=== PATIENT | male | born 1960 | race Caucasian/White ===

== ENCOUNTER 2019-08-23 08:58 | Day surgery (SDC) | payer OTHER ==
[~2019-08-23] VITALS: Ht 190.5 cm; Wt 123.0 kg
[2019-08-23] MEDS ORDERED: MIDAZOLAM 1 MG/ML, 2ML ONE (09:03)
[2019-08-23] MEDS ORDERED: FENTANYL PF 100 MCG/2ML ONE (09:03)
[2019-08-23] MEDS ORDERED: BUPIVACAINE/PF 0.25% ONE (09:05)
[2019-08-23] MEDS ORDERED: LIDOCAINE-MPF 2% ,5ML ONE ×2 (09:05→10:40)
[2019-08-23] MEDS ORDERED: LIDOCAINE-MPF 1%, 2ML INFIL STA (09:31)
[2019-08-23] MEDS ORDERED: CHLORHEXIDINE 15 ML UDC MM STA (09:31)
[2019-08-23] MEDS ORDERED: LACTATED RINGERS 1,000 ML IV STA (09:31)
[2019-08-23 09:32] VITALS: BP 124/84
[2019-08-23] MEDS ORDERED: IBUP-1223 PO (09:37)
[2019-08-23] MEDS ORDERED: CYCL5TAB PO (09:37)
[2019-08-23] MEDS ORDERED: HYDR-3246 PO (09:37)
[2019-08-23] MEDS ORDERED: LIDOCAINE-MPF 1%, 2ML ONE (09:38)
[2019-08-23] MEDS ORDERED: CHLORHEXIDINE 15 ML UDC ONE (09:40)
[2019-08-23] MEDS ORDERED: LACTATED RINGERS 1,000 ML IV SCH (10:00)
[2019-08-23] MEDS ORDERED: BUPIVACAINE/PF 0.5% ONE (10:40)
[2019-08-23] MEDS ORDERED: LIDOCAINE 1%, 20ML ONE (10:45)
[2019-08-23] MEDS ORDERED: CEFAZOLIN 1,000 MG ONE ×2 (11:07→11:42)
[2019-08-23] MEDS ORDERED: GLYCOPYRROLATE 0.2MG/1ML, 5ML ONE (11:42)
[2019-08-23] MEDS ORDERED: PROPOFOL 10 MG/ML, 20ML ONE (11:42)
[2019-08-23] MEDS ORDERED: NEOSTIGMINE 1 MG/ML, 10ML ONE (11:42)
[2019-08-23] MEDS ORDERED: ONDANSETRON 2MG/ML, 2ML ONE (11:42)
[2019-08-23] MEDS ORDERED: DEXAMETHASONE 4 MG/ML, 1ML ONE (11:42)
[2019-08-23] MEDS ORDERED: SUCCINYLCHOLINE 20 MG/ML, 10ML ONE (11:42)
[2019-08-23] MEDS ORDERED: ROCURONIUM 10MG/ML,5ML ONE (11:42)
[2019-08-23] MEDS ORDERED: ONDANSETRON 2MG/ML, 2ML IVPush PRN (12:00)
[2019-08-23] MEDS ORDERED: OXYcodone 5 MG/5 ML ORAL.SOL UDC PO PRN (12:00)
[2019-08-23] MEDS ORDERED: DIAZEPAM 5 MG/ML, 2ML IVPush PRN (12:00)
[2019-08-23] MEDS ORDERED: HYDROmorphone 1 MG/ML, 1ML INJ IVPush PRN (12:00)
[2019-08-23] MEDS ORDERED: PROMETHAZINE 25 MG/ML, 1ML IVPush PRN (12:00)
[2019-08-23] MEDS ORDERED: FENTANYL PF 100 MCG/2ML IV PRN (12:00)
[2019-08-23] MEDS ORDERED: ACETAMINOPHEN 325 MG TABLET PO PRN (12:00)
[2019-08-23] MEDS ORDERED: PROMETHAZINE 25 MG SUPP PR PRN (12:00)
[2019-08-23] MEDS ORDERED: LORazepam 2 MG/ML, 1ML IVPush PRN (12:00)
[2019-08-23] MEDS ORDERED: OXYcodone 5 MG/5 ML ORAL.SOL UDC ONE (12:29)
== END 2019-08-23 14:00 | disposition home or self-care (01) ==
LOC: OUT 08:58
PROVIDERS: ATTEND Orthopaedic Surgery
DX: S92.354A Nondisplaced fracture of fifth metatarsal bone, right foot, initial encounter for closed fracture (principal); Z11.59 Encounter for screening for other viral diseases; G47.30 Sleep apnea, unspecified; Z79.1 Long term (current) use of non-steroidal anti-inflammatories (NSAID); Z79.891 Long term (current) use of opiate analgesic; Z79.899 Other long term (current) drug therapy; Z98.890 Other specified postprocedural states; Z82.61 Family history of arthritis; Z82.3 Family history of stroke; X50.1XXA Overexertion from prolonged static or awkward postures, initial encounter; Y93.89 Activity, other specified; Y92.89 Other specified places as the place of occurrence of the external cause; Y99.8 Other external cause status
CPT/HCPCS: 28485; 73630; C1713; J0330; J0690; J1100; J2250; J2405; J2704; J2710; J3010; J3490; J7120; U0001; 76000